=== PATIENT | male | born 1940 | race Caucasian/White ===

== ENCOUNTER → 2023-10-25 16:00 | Outpatient (REF) | payer MEDICARE, BC, SELFPAY | LOC: RAD 16:00 | PROVIDERS: ATTENDING PHYSICIAN Internal Medicine Geriatric Medicine | DX: N32.89 Other specified disorders of bladder (principal) | CPT/HCPCS: 74178; Q9967 ==

== ENCOUNTER → 2023-11-20 10:16 | Outpatient (REF) | payer MEDICARE, BC, SELFPAY ==
[2023-11-20 11:06] LABS: % Basophils 0.4 % (0-2); % Eosinophils 1.6 % (0-6); % Immature Granulocytes 0.1 % (0-0.5); % Lymphocytes 24.1 % (20.5-51.1); % Monocytes 11.8 % (1.7-9.3); Absolute Eosinophils 0.1 10^3/uL (0-0.7); Absolute Lymphocytes 1.8 10^3/uL (1.2-3.4); Absolute Monocytes 0.9 10^3/uL (0.1-0.6); Absolute Neutrophils 4.6 10^3/uL (1.4-6.5); Hematocrit 40.4 % (39.0-52.0); Hemoglobin 13.8 g/dL (13.0-18.0); Mean Corp Hgb Conc. 34.2 g/dL (33.0-37.0); Mean Corpuscular Hgb 30.5 pg (27.0-31.0); Mean Corpuscular Volume 89.2 fL (80.0-94.0); Mean Platelet Volume 9.1 fL (7.4-10.4); Nucleated Red Blood Cells % 0 % (-); Platelet Count 367 10^3/uL (130-400); Red Blood Cell Count 4.53 10^6/uL (4.70-6.10); Red Cell Dist. Width 13.9 % (11.5-14.5); White Blood Cell Count 7.4 10^3/uL (4.8-10.8)
[2023-11-20 13:11] LABS: ALT (SGPT) 22 U/L (0-50); AST (SGOT) 29 U/L (17-59); Albumin 4.2 g/dl (3.5-5.0); Alkaline Phosphatase 79 U/L (38-126); Blood Urea Nitrogen 46 mg/dl (9-20); Calcium 9.9 mg/dl (8.4-10.2); Carbon Dioxide 27 mmol/L (22-30); Chloride 101 mmol/L (98-107); Glucose 103 mg/dl (70-99); HDL Cholesterol 37 mg/dl; Potassium 3.7 mmol/L (3.5-5.1); Sodium 139 mmol/L (135-145); Total Bilirubin 0.7 mg/dl (0.2-1.3); Total Protein 7.2 g/dl (6.3-8.2); Triglyceride 298 mg/dl (10-149); Very Low Density Lipoprotein 59 mg/dl (0-30); eGFR 46.19
[2023-11-20 13:17] LABS: LDL Cholesterol, Calculated 323 mg/dl; Total Cholesterol 419 mg/dl (50-199)
[2023-11-20 13:32] LABS: PSA, Total - Screen 3.77 ng/ml (0.0-4.0)
[2023-11-20 17:26] LABS: Urine Albumin 1+ (Neg - Trace); Urine Bilirubin Negative (Negative); Urine Character Clear (Clear); Urine Color Red; Urine Glucose Negative (Negative); Urine Ketone Negative (Negative); Urine Leukocyte Trace (Negative); Urine Nitrite Negative (Negative); Urine Occult Blood 4+ (Negative); Urine Specific Gravity 1.005 (<1.030); Urine Urobilinogen Negative (Neg - 1+)
[2023-11-20 17:33] LABS: Urine Bacteria Moderate (Negative); Urine Red Blood Cell 50-60 /HPF (0-2); Urine White Cell 0-2 /HPF (0-5)
== END ==
LOC: REG 10:16
PROVIDERS: ATTENDING PHYSICIAN Internal Medicine Geriatric Medicine; FAMILY PHYSICIAN Specialist
DX: E78.89 Other lipoprotein metabolism disorders (principal); R73.01 Impaired fasting glucose; Z12.5 Encounter for screening for malignant neoplasm of prostate; N28.9 Disorder of kidney and ureter, unspecified; R79.9 Abnormal finding of blood chemistry, unspecified; R79.89 Other specified abnormal findings of blood chemistry; E89.89 Other postprocedural endocrine and metabolic complications and disorders; Z79.899 Other long term (current) drug therapy; R82.90 Unspecified abnormal findings in urine
CPT/HCPCS: 36415; 80053; 80061; 81003; 81015; 85025; G0103

== ENCOUNTER → 2023-12-12 09:41 | Outpatient (REF) | payer MEDICARE, BC, SELFPAY ==
[2023-12-12 10:41] LABS: PT 13.2 Sec (11.4-14.6)
[2023-12-12 10:42] LABS: APTT 30.3 Sec (23.4-35.0)
== END ==
LOC: SDSPAT 09:41
PROVIDERS: ATTENDING PHYSICIAN Specialist; FAMILY PHYSICIAN Internal Medicine Geriatric Medicine
DX: N32.89 Other specified disorders of bladder (principal)
CPT/HCPCS: 36415; 85610; 85730; 93005

== ENCOUNTER 2023-12-19 06:25 | Day surgery (SDC) | payer MEDICARE, BC, SELFPAY ==
[2023-12-12 10:05] VITALS: BMI 23.9
[2023-12-19] VITALS (10 sets, daily range): BP systolic 136–153; BP diastolic 52–75; BMI 23.9
[2023-12-19] MEDS: NORMOSOL-R 1000 IV (09:48)
[2023-12-19] MEDS: SYRINGE NON-PUMP 50 ML IRRIG (12:26)
[2023-12-19] MEDS: SYRINGE NON-PUMP 50 MG IRRIG (12:26)
== END 2023-12-19 14:50 | disposition home or self-care (01) ==
LOC: SDS 06:25
PROVIDERS: ATTENDING PHYSICIAN Specialist
DX: C67.8 Malignant neoplasm of overlapping sites of bladder (principal)
CPT/HCPCS: 52240; 51720; 88307; J9201

== ENCOUNTER 2024-03-17 06:33 | Day surgery (SDC) | payer MEDICARE, BC, SELFPAY ==
--- NOTE | 2024-03-16 15:15 | PTCARENOTE ---
Patients 03/13 WILD Zhu @ Dr. Thapa office notified
[2024-03-17] VITALS (11 sets, daily range): BP systolic 146–167; BP diastolic 67–78; BMI 23.0
[2024-03-17] MEDS: CYSVIEW KIT 100 MG INTRAVES (08:10)
[2024-03-17] MEDS: NORMOSOL-R/PLASMALYTE-A 1000 IV (08:12)
[2024-03-17] MEDS: SYRINGE NON-PUMP 50 ML IRRIG ×2 (10:50→10:51)
[2024-03-17] MEDS: SYRINGE NON-PUMP 50 MG IRRIG ×2 (10:50→10:51)
== END 2024-03-17 13:14 | disposition home or self-care (01) ==
LOC: SDS 06:33
PROVIDERS: ATTENDING PHYSICIAN Specialist
DX: C67.3 Malignant neoplasm of anterior wall of bladder (principal); Z85.51 Personal history of malignant neoplasm of bladder
CPT/HCPCS: 52235; C9738; 88307

== ENCOUNTER 2024-03-30 13:42 | Day surgery (SDC) | payer MEDICARE, BC, SELFPAY ==
[2024-03-13 12:58] VITALS: BMI 23.7
[2024-03-30] VITALS (9 sets, daily range): BP systolic 146–198; BP diastolic 71–181; BMI 23.7
--- NOTE | 2024-03-30 12:15 | HP.FOC2 ---
Focused History & Physical
Chief Complaint
HPI:
Chief Complaint: Right inguinal hernia
HPI / Indication for Planned Procedure: Patient is an 83-year-old male with right inguinal hernia that we have been following expectantly through initial treatments for a bladder tumor that he has undergone TURBT followed by BCG treatments. He
presents today for scheduled operative correction of his symptomatic right inguinal hernia.
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
Relevant Social History: Negative
Relevant Family History: Negative
Relevant Past Surgical History: Positive for (Removal of basal cell, right lower extremity angioplasty, TURBT)
Review of Systems
Review of Pertinent Systems: All Systems Negative
Medication
See Medication form for detailed medications: Yes
Medication List (including Herbals & OTC):
Cbd/Thc 1 dose sublingual PRN PRN Sleep, anxiety 12/17/23
dorzolamide-timolol (PF) 2 %-0.5 % eye drops in a dropperette 1 drp BOTH EYES Q12 12/17/23
ezetimibe 10 mg tablet (Zetia) 10 mg PO QPM 12/17/23
hydrochlorothiazide 25 mg tablet 25 mg PO DAILY 12/17/23
latanoprost (PF) 0.005 % eye drops in a dropperette 1 drp ophthalmic (eye) HS 12/17/23
acetaminophen 500 mg tablet 500 mg PO Q6H PRN hernia pain 03/17/24
rosuvastatin 40 mg tablet (Crestor) 40 mg PO DAILY 03/17/24
diazepam 2 mg tablet 2 mg PO HS PRN insomnia 03/23/24
Medications Reviewed: Yes
Allergies and Reactions
Patient has Allergies: No
Noted Allergies and Reactions:
Allergy/AdvReac Type Severity Reaction Status Date / Time
No Known Allergies Allergy Verified 03/30/24 12:10
Pertinent Physical Exam
All Other Systems: Negative
Head/Neck: Normal
Lungs: Normal
Heart: Normal
Abdomen: Other (Reducible right inguinal hernia)
Extremities: Normal
Neurological: Normal
Diagnosis / Assessment
83-year-old male presenting for scheduled operative correction symptomatic right inguinal hernia
Plan / Procedure
Robotic assisted laparoscopic repair right inguinal hernia with mesh
Anesthesia/Sedation to be done by Anesthesia Provider: Yes
[2024-03-30] MEDS: TYLENOL 1000 MG PO (12:26)
[2024-03-30] MEDS: NORMOSOL-R/PLASMALYTE-A 1000 IV (12:26)
--- NOTE | 2024-03-30 14:27 | W.SUR.PREOP ---
Pre-Operative Surgical Note
-
I have examined this patient prior to the performance of the scheduled procedure.
The patient's condition is unchanged from the time of the current History and
Physical and the patient is able to undergo the scheduled procedure.
--- NOTE | 2024-03-30 17:21 | W.IMMPOSTOP ---
Surgical Immed Post Op Note
-
Primary Surgeon: Diana
Assisting Surgeon: Michelle Potter PA-C
Pre-op Diagnosis: Right inguinal hernia
Post-op Diagnosis: Right inguinal hernia, indirect
Procedure Performed: Robotic assisted laparoscopic JOSUE repair right inguinal hernia with mesh; 3D max extra-large mid weight
Anesthesia Type: GETA +0.25% Marcaine
Specimen / Cultures: None
Estimated Blood Loss: 12 mL
Complications: None immediate
Operative Findings: Large right indirect inguinal scrotal hernia with large lipoma of cord structures which was reduced and excised to facilitate mesh placement. 3D max extra-large mid weight mesh repair secured to Ki's ligament with 2-0 Vicryl
x 2. Excessive hernia sac excised at neck and peritoneum closed with 2-0 Monocryl STRATAFIX spiral. No additional incidental findings.
Patient's updated postoperatively via phone call
The assistance of Michelle Potter PA-C was required due to the complexity of the procedure. During the procedure Michelle Potter PA-C assisted with port placement, robotic instrumentation and suture material exchanges, and closure of the surgical incision
sites. I was present for the entirety of the operative procedure.
[2024-03-30] MEDS: SUBLIMAZE 50 MCG IV (17:33)
== END 2024-03-30 18:44 | disposition home or self-care (01) ==
LOC: SDS 13:42
PROVIDERS: ATTENDING PHYSICIAN Surgery; FAMILY PHYSICIAN Internal Medicine Geriatric Medicine
PROC: 0YU54JZ Supplement Right Inguinal Region with Synthetic Substitute, Percutaneous Endoscopic Approach (ICD-10-PCS; 2024-03-30)
PROC: 8E0W4CZ Robotic Assisted Procedure of Trunk Region, Percutaneous Endoscopic Approach (ICD-10-PCS; 2024-03-30)
DX: K40.90 Unilateral inguinal hernia, without obstruction or gangrene, not specified as recurrent (principal)
CPT/HCPCS: 49650; C1781

== ENCOUNTER → 2024-07-23 11:03 | Outpatient (REF) | payer MEDICARE, BC, SELFPAY | LOC: RAD 11:03 | PROVIDERS: ATTENDING PHYSICIAN Podiatrist | DX: I73.9 Peripheral vascular disease, unspecified (principal) | CPT/HCPCS: 93922; 93925 ==

== ENCOUNTER → 2024-10-23 17:49 | Outpatient (REF) | payer MEDICARE, BC, SELFPAY | LOC: CLAB 17:49 | PROVIDERS: ATTENDING PHYSICIAN Specialist | DX: C67.8 Malignant neoplasm of overlapping sites of bladder (principal); R82.90 Unspecified abnormal findings in urine | CPT/HCPCS: 87077; 87086 ==

== ENCOUNTER → 2024-11-16 13:53 | Outpatient (REF) | payer MEDICARE, BC, SELFPAY ==
[2024-11-16 15:13] LABS: ALT (SGPT) 27 U/L (0-50); AST (SGOT) 28 U/L (17-59); Albumin 4.2 g/dl (3.5-5.0); Alkaline Phosphatase 112 U/L (38-126); Blood Urea Nitrogen 28 mg/dl (9-20); Calcium 9.6 mg/dl (8.4-10.2); Carbon Dioxide 26 mmol/L (22-30); Chloride 104 mmol/L (98-107); Glucose 110 mg/dl (70-99); HDL Cholesterol 30 mg/dl; LDL Cholesterol, Calculated 118 mg/dl; Potassium 4.5 mmol/L (3.5-5.1); Sodium 139 mmol/L (135-145); Total Bilirubin 0.6 mg/dl (0.2-1.3); Total Cholesterol 197 mg/dl (50-199); Total Protein 7.9 g/dl (6.3-8.2); Triglyceride 247 mg/dl (10-149); Very Low Density Lipoprotein 49 mg/dl (0-30); eGFR 45.91
[2024-11-16 15:19] LABS: CRP, Ultra Sensitive 7.69 mg/L (0.30-5.00)
[2024-11-16 15:28] LABS: Vitamin D, 25-OH*** 38.2 ng/mL (30-80)
[2024-11-16 15:34] LABS: % Basophils 0.3 % (0-2); % Eosinophils 1.9 % (0-6); % Immature Granulocytes 0.3 % (0-0.5); % Lymphocytes 19.3 % (20.5-51.1); % Neutrophils 68.2 % (42.2-75.2); Absolute Eosinophils 0.2 10^3/uL (0-0.7); Absolute Monocytes 1.1 10^3/uL (0.1-0.6); Absolute Neutrophils 7.2 10^3/uL (1.4-6.5); Hematocrit 29.2 % (39.0-52.0); Hemoglobin 9.4 g/dL (13.0-18.0); Mean Corp Hgb Conc. 32.2 g/dL (33.0-37.0); Mean Corpuscular Hgb 28.4 pg (27.0-31.0); Mean Corpuscular Volume 88.2 fL (80.0-94.0); Mean Platelet Volume 9.1 fL (7.4-10.4); Nucleated Red Blood Cells % 0 % (-); Platelet Count 423 10^3/uL (130-400); Red Blood Cell Count 3.31 10^6/uL (4.70-6.10); Red Cell Dist. Width 14.8 % (11.5-14.5); White Blood Cell Count 10.6 10^3/uL (4.8-10.8)
[2024-11-16 16:13] LABS: Urine Albumin 3+ (Neg - Trace); Urine Bilirubin Negative (Negative); Urine Character Clear (Clear); Urine Color Red; Urine Glucose Negative (Negative); Urine Ketone Negative (Negative); Urine Leukocyte 2+ (Negative); Urine Nitrite Negative (Negative); Urine Occult Blood 4+ (Negative); Urine Urobilinogen Negative (Neg - 1+)
[2024-11-16 17:01] LABS: Urine Bacteria Few (Negative); Urine Red Blood Cell 30-40 /HPF (0-2)
== END ==
LOC: REG 13:53
PROVIDERS: ATTENDING PHYSICIAN Specialist; FAMILY PHYSICIAN Internal Medicine Geriatric Medicine
DX: C67.8 Malignant neoplasm of overlapping sites of bladder (principal); Z00.00 Encounter for general adult medical examination without abnormal findings; I10 Essential (primary) hypertension; E78.2 Mixed hyperlipidemia; I73.9 Peripheral vascular disease, unspecified; E78.01 Familial hypercholesterolemia; G62.9 Polyneuropathy, unspecified; R91.8 Other nonspecific abnormal finding of lung field; R79.9 Abnormal finding of blood chemistry, unspecified; Z13.31 Encounter for screening for depression; Z12.5 Encounter for screening for malignant neoplasm of prostate; E55.9 Vitamin D deficiency, unspecified
CPT/HCPCS: 36415; 80053; 80061; 81003; 81015; 82306; 85025; 86141; 87086

== ENCOUNTER → 2024-11-20 17:22 | Outpatient (REF) | payer MEDICARE, BC, SELFPAY | LOC: RAD 17:22 | PROVIDERS: ATTENDING PHYSICIAN Specialist; FAMILY PHYSICIAN Internal Medicine Geriatric Medicine | DX: C67.8 Malignant neoplasm of overlapping sites of bladder (principal) | CPT/HCPCS: 74178; Q9967 ==

== ENCOUNTER → 2024-11-24 09:02 | Outpatient (REF) | payer MEDICARE, BC, SELFPAY ==
[2024-11-24 09:53] LABS: % Basophils 0.4 % (0-2); % Eosinophils 2.2 % (0-6); % Immature Granulocytes 0.4 % (0-0.5); % Lymphocytes 13.7 % (20.5-51.1); % Monocytes 10.2 % (1.7-9.3); % Neutrophils 73.1 % (42.2-75.2); Absolute Eosinophils 0.2 10^3/uL (0-0.7); Absolute Lymphocytes 1.5 10^3/uL (1.2-3.4); Absolute Monocytes 1.1 10^3/uL (0.1-0.6); Absolute Neutrophils 7.9 10^3/uL (1.4-6.5); Hematocrit 30.4 % (39.0-52.0); Hemoglobin 9.3 g/dL (13.0-18.0); Mean Corp Hgb Conc. 30.6 g/dL (33.0-37.0); Mean Corpuscular Hgb 27.4 pg (27.0-31.0); Mean Corpuscular Volume 89.7 fL (80.0-94.0); Mean Platelet Volume 8.6 fL (7.4-10.4); Nucleated Red Blood Cells % 0 % (-); Platelet Count 525 10^3/uL (130-400); Red Blood Cell Count 3.39 10^6/uL (4.70-6.10); Red Cell Dist. Width 15.3 % (11.5-14.5); White Blood Cell Count 10.7 10^3/uL (4.8-10.8)
[2024-11-24 11:24] LABS: Iron 39 ug/dl (49-181)
[2024-11-24 11:33] LABS: Percent Saturation 9 % (20-50); Total Iron Binding Capacity 393 ug/dl (261-462)
[2024-11-24 12:04] LABS: Ferritin 12.4 ng/ml (17.9-464.0)
[2024-11-24 12:18] LABS: Vitamin B12 790 pg/ml (239-931)
[2024-11-24 13:33] LABS: Folate > 20.0 ng/ml (2.76-20)
== END ==
LOC: REG 09:02
PROVIDERS: ATTENDING PHYSICIAN Internal Medicine Geriatric Medicine
DX: R79.89 Other specified abnormal findings of blood chemistry (principal); Z79.899 Other long term (current) drug therapy
CPT/HCPCS: 36415; 82607; 82728; 82746; 83540; 83550; 85025

== ENCOUNTER → 2024-11-27 10:19 | Outpatient (REF) | payer MEDICARE, BC, SELFPAY | LOC: SDSPAT 10:19 | PROVIDERS: ATTENDING PHYSICIAN Specialist; FAMILY PHYSICIAN Internal Medicine Geriatric Medicine | DX: C67.8 Malignant neoplasm of overlapping sites of bladder (principal); C67.9 Malignant neoplasm of bladder, unspecified | CPT/HCPCS: 36415; 93005 ==

== ENCOUNTER → 2024-12-09 10:49 | Outpatient (REF) | payer MEDICARE, BC, SELFPAY | LOC: RAD 10:49 | PROVIDERS: ATTENDING PHYSICIAN Internal Medicine Geriatric Medicine | DX: Z85.51 Personal history of malignant neoplasm of bladder (principal); M25.551 Pain in right hip; M25.552 Pain in left hip | CPT/HCPCS: 73522 ==

== ENCOUNTER 2024-12-10 06:03 | Day surgery (SDC) | payer MEDICARE, BC, SELFPAY ==
[2024-11-27 12:58] VITALS: BMI 22.9
--- NOTE | 2024-12-07 13:25 | PTCARENOTE ---
Patients 11/24 Hgb-9.3- Dr. Amezcua notified- no additional interventions required.
[2024-12-10] VITALS (10 sets, daily range): BP systolic 122–150; BP diastolic 61–76; BMI 22.9
[2024-12-10] MEDS: NORMOSOL-R/PLASMALYTE-A 1000 IV (06:54)
[2024-12-10] MEDS: SYRINGE NON-PUMP 50 MG IRRIG ×2 (08:41→08:42)
[2024-12-10] MEDS: SYRINGE NON-PUMP 50 ML IRRIG ×2 (08:41→08:42)
[2024-12-10] MEDS: DILAUDID 0.25 MG IV ×2 (08:47→09:02)
--- NOTE | 2024-12-10 09:47 | SUR.PHASEI ---
bladder chemo instilled and dwell in pacu , dilaudid x2 for pain and tolerance of dwell time. urine cleared to blood tinged on completion of dwell, patient much more comfortable. discharging home with coats- patient aware and has had coats and
bladder chemo previously
== END 2024-12-10 10:23 | disposition home or self-care (01) ==
LOC: SDS 06:03
PROVIDERS: ATTENDING PHYSICIAN Specialist; FAMILY PHYSICIAN Internal Medicine Geriatric Medicine
DX: C67.9 Malignant neoplasm of bladder, unspecified (principal)
CPT/HCPCS: 52240; 51720; 88307; J9201

== ENCOUNTER → 2024-12-24 08:05 | Outpatient (REF) | payer MEDICARE, BC, SELFPAY ==
[2024-12-24] VITALS (8 sets, daily range): BP systolic 53–140; BP diastolic 56–80
[2024-12-24 07:45] LABS: Hematocrit 31.1 % (39.0-52.0); Mean Corp Hgb Conc. 32.2 g/dL (33.0-37.0); Mean Corpuscular Hgb 28.4 pg (27.0-31.0); Mean Corpuscular Volume 88.4 fL (80.0-94.0); Mean Platelet Volume 8.1 fL (7.4-10.4); Platelet Count 365 10^3/uL (130-400); Red Blood Cell Count 3.52 10^6/uL (4.70-6.10); Red Cell Dist. Width 17.1 % (11.5-14.5); White Blood Cell Count 10.1 10^3/uL (4.8-10.8)
[2024-12-24 07:55] LABS: INR 0.98; PT 13.5 Sec (11.4-14.6)
== END ==
LOC: RADI 08:05
PROVIDERS: Physician Assistant; ATTENDING PHYSICIAN Internal Medicine Hematology & Oncology
DX: C78.6 Secondary malignant neoplasm of retroperitoneum and peritoneum (principal); C67.9 Malignant neoplasm of bladder, unspecified; D68.8 Other specified coagulation defects
CPT/HCPCS: 36415; 49180; 77012; 85027; 85610; 88305; 88360; 99152

== ENCOUNTER → 2024-12-29 15:00 | Outpatient (REF) | payer MEDICARE, BC, SELFPAY ==
[2024-12-29 16:15] LABS: Hematocrit 32.9 % (39.0-52.0); Hemoglobin 10.5 g/dL (13.0-18.0); Mean Corp Hgb Conc. 31.9 g/dL (33.0-37.0); Mean Corpuscular Volume 88.7 fL (80.0-94.0); Nucleated Red Blood Cells % 0 % (-); Platelet Count 504 10^3/uL (130-400); Red Cell Dist. Width 16.8 % (11.5-14.5)
[2024-12-29 17:12] LABS: ALT (SGPT) 29 U/L (0-50); AST (SGOT) 34 U/L (17-59); Albumin 4.1 g/dl (3.5-5.0); Alkaline Phosphatase 178 U/L (38-126); Blood Urea Nitrogen 45 mg/dl (9-20); Calcium 9.8 mg/dl (8.4-10.2); Carbon Dioxide 26 mmol/L (22-30); Chloride 103 mmol/L (98-107); Glucose 111 mg/dl (70-99); Potassium 4.5 mmol/L (3.5-5.1); Sodium 137 mmol/L (135-145); Total Protein 7.9 g/dl (6.3-8.2); eGFR 39.51
[2024-12-29 17:50] LABS: TSH 17.30 uIU/ml (0.47-4.68)
== END ==
LOC: REG 15:00
PROVIDERS: ATTENDING PHYSICIAN Internal Medicine Hematology & Oncology; FAMILY PHYSICIAN Internal Medicine Geriatric Medicine; OTHER PHYSICIAN Internal Medicine; REFERRING PHYSICIAN Specialist
DX: C67.2 Malignant neoplasm of lateral wall of bladder (principal); C77.2 Secondary and unspecified malignant neoplasm of intra-abdominal lymph nodes; E03.9 Hypothyroidism, unspecified
CPT/HCPCS: 36415; 80053; 84439; 84443; 84480; 85025

== ENCOUNTER → 2025-01-04 08:20 | Outpatient (REF) | payer MEDICARE, BC, SELFPAY ==
[2025-01-04 09:00] LABS: Hematocrit 32.7 % (39.0-52.0); Hemoglobin 10.4 g/dL (13.0-18.0); Mean Corp Hgb Conc. 31.8 g/dL (33.0-37.0); Mean Corpuscular Volume 88.4 fL (80.0-94.0); Nucleated Red Blood Cells % 0 % (-); Platelet Count 479 10^3/uL (130-400); Red Cell Dist. Width 17.0 % (11.5-14.5)
[2025-01-04 09:56] LABS: ALT (SGPT) 23 U/L (0-50); AST (SGOT) 23 U/L (17-59); Albumin 4.0 g/dl (3.5-5.0); Alkaline Phosphatase 178 U/L (38-126); Blood Urea Nitrogen 42 mg/dl (9-20); Calcium 9.5 mg/dl (8.4-10.2); Carbon Dioxide 24 mmol/L (22-30); Chloride 106 mmol/L (98-107); Glucose 112 mg/dl (70-99); Potassium 3.8 mmol/L (3.5-5.1); Sodium 140 mmol/L (135-145); Total Protein 7.8 g/dl (6.3-8.2); eGFR 39.51
[2025-01-04 10:19] LABS: Glycohemoglobin (HgbA1c) 5.9 % (4.0-5.6)
[2025-01-04 10:20] LABS: TSH 18.30 uIU/ml (0.47-4.68)
== END ==
LOC: REG 08:20
PROVIDERS: ATTENDING PHYSICIAN Internal Medicine; FAMILY PHYSICIAN Internal Medicine Geriatric Medicine
DX: C67.9 Malignant neoplasm of bladder, unspecified (principal); I10 Essential (primary) hypertension; E78.00 Pure hypercholesterolemia, unspecified; R79.89 Other specified abnormal findings of blood chemistry
CPT/HCPCS: 36415; 80053; 83036; 84443; 85025

== ENCOUNTER → 2025-03-29 12:31 | Outpatient (REF) | payer MEDICARE, BC, SELFPAY ==
[2025-03-29 14:10] LABS: TSH 2.92 uIU/ml (0.47-4.68)
== END ==
LOC: REG 12:31
PROVIDERS: ATTENDING PHYSICIAN Internal Medicine Geriatric Medicine
DX: I10 Essential (primary) hypertension (principal); E78.2 Mixed hyperlipidemia; I73.9 Peripheral vascular disease, unspecified; E78.01 Familial hypercholesterolemia; G62.9 Polyneuropathy, unspecified; R91.8 Other nonspecific abnormal finding of lung field; R79.9 Abnormal finding of blood chemistry, unspecified; M16.0 Bilateral primary osteoarthritis of hip; E03.9 Hypothyroidism, unspecified; Z13.31 Encounter for screening for depression
CPT/HCPCS: 36415; 84439; 84443

== ENCOUNTER → 2025-04-06 09:30 | Outpatient (REF) | payer MEDICARE, BC, SELFPAY | LOC: RAD 09:30 | PROVIDERS: ATTENDING PHYSICIAN Surgery Vascular Surgery; FAMILY PHYSICIAN Internal Medicine Geriatric Medicine | DX: Z13.6 Encounter for screening for cardiovascular disorders (principal) | CPT/HCPCS: 76770 ==

== ENCOUNTER 2025-04-26 09:27 | Outpatient (RCR) | payer MEDICARE, BC, SELFPAY | END 2025-04-26 23:59 | disposition home or self-care (01) | LOC: RPT 09:27 | PROVIDERS: ATTENDING PHYSICIAN Internal Medicine Geriatric Medicine | DX: M62.81 Muscle weakness (generalized) (principal); Z73.6 Limitation of activities due to disability; R26.2 Difficulty in walking, not elsewhere classified; C67.9 Malignant neoplasm of bladder, unspecified; G62.9 Polyneuropathy, unspecified | CPT/HCPCS: 97110; 97112; 97163 ==

== ENCOUNTER → 2025-04-30 13:39 | Outpatient (REF) | payer MEDICARE, BC, SELFPAY | LOC: DHVS 13:39 | PROVIDERS: ATTENDING PHYSICIAN Surgery Vascular Surgery; FAMILY PHYSICIAN Internal Medicine Geriatric Medicine | DX: I73.9 Peripheral vascular disease, unspecified (principal) | CPT/HCPCS: 93922; 93925 ==

== ENCOUNTER 2025-05-25 10:24 | Outpatient (RCR) | payer MEDICARE, BC, SELFPAY | END 2025-05-25 23:59 | disposition home or self-care (01) | LOC: RPT 10:24 | PROVIDERS: ATTENDING PHYSICIAN Internal Medicine Geriatric Medicine | DX: M62.81 Muscle weakness (generalized) (principal); Z73.6 Limitation of activities due to disability; R26.2 Difficulty in walking, not elsewhere classified; C67.9 Malignant neoplasm of bladder, unspecified; G62.9 Polyneuropathy, unspecified | CPT/HCPCS: 97110; 97112 ==

== ENCOUNTER 2025-06-25 13:32 | Outpatient (RCR) | payer MEDICARE, BC, SELFPAY | END 2025-06-29 23:59 | disposition home or self-care (01) | LOC: RPT 13:32 | PROVIDERS: ATTENDING PHYSICIAN Internal Medicine Geriatric Medicine | DX: M62.81 Muscle weakness (generalized) (principal); Z73.6 Limitation of activities due to disability; R26.2 Difficulty in walking, not elsewhere classified; C67.9 Malignant neoplasm of bladder, unspecified; G62.9 Polyneuropathy, unspecified | CPT/HCPCS: 97110 ==